=== PATIENT | female | born 1940 | race Caucasian/White ===

== ENCOUNTER → 2016-12-05 | Day surgery (SDC) | payer MEDICARE, BC ==
[~2016-12-05] MED LIST: Sodium Chloride 0.9% 1,000 ML IV SCH
[2016-12-05 07:38] VITALS: BP 163/84
== END ==
LOC: JP.SDS 07:05
PROVIDERS: ATTEND Surgery
DX: Z53.8 Procedure and treatment not carried out for other reasons (principal); I10 Essential (primary) hypertension; E03.9 Hypothyroidism, unspecified; E78.5 Hyperlipidemia, unspecified
CPT/HCPCS: 88305; J7040

== ENCOUNTER 2021-06-06 13:14 | Emergency (ER) | payer MEDICARE, BC ==
[2021-06-06] MEDS ORDERED: Acetaminophen/HYDROcodone 325-5 MG Tab PO ONE (13:41)
--- NOTE | 2021-06-06 13:45 | EDM.PDOC ---
ED HPI GENERAL MEDICAL PROBLEM - General Chief Complaint: Lower Extremity Injury/Pain Stated Complaint: MEDICAL [facility]IA [facility] Time Seen by Provider: 06/06/21 13:38 Source of Information: Reports: Patient, RN Notes Reviewed History Limitations: Reports: No Limitations - History of Present Illness INITIAL COMMENTS - FREE TEXT/NARRATIVE: 80-year-old female presents emergency department day complaint of lower extremity bilateral hip pain, she is unsure what happened she does do peritoneal dialysis at home was very weak fell last night could not get up spent the night on the floor before she could call for help. She continues to complain of pain both hips and bilateral thigh pain as well. Bilateral Leg Pain Score (Numeric/FACES): 8 - Related Data Allergies Allergy/AdvReac Type Severity Reaction Status Date / Time amlodipine [From Norvas] Allergy Edema Verified 06/06/21 13:23 nickel [Nickel] Allergy Cannot Verified 06/06/21 13:23 Remember Sulfa (Sulfonamide Allergy Rash Verified 06/06/21 13:23 Antibiotics) lisinopril AdvReac Cough Verified 06/06/21 13:23 simvastatin AdvReac Muscle Verified 06/06/21 13:23 Aches Home Meds: Home Meds Cholecalciferol (Vitamin D3) [Vitamin D3] 2,000 units PO DAILY 12/29/13 [History] Levothyroxine Sodium [Synthroid] 75 mcg PO ACBREAKFAST 12/12/15 [History] Furosemide [Lasix] 80 mg PO DAILY 09/06/16 [History] Docusate Sodium [Colace] 1 cap PO ASDIRECTED PRN 06/06/21 [History] Past Medical History HEENT History: Reports: Impaired Vision Cardiovascular History: Reports: Hypertension Genitourinary History: Reports: Renal Disease Other Genitourinary History: stage 3 kidney disease SEE SUPERVISOR History: Reports: , Spontaneous Musculoskeletal History: Reports: Arthritis - Infectious Disease History Infectious Disease History: Reports: Chicken Pox - Past Surgical History HEENT Surgical History: Reports: Adenoidectomy, Tonsillectomy Other Oncologic Surgeries/Procedures: precanerous skin cells Social & Family History - Tobacco Use Tobacco Use Status *Q: Never Tobacco User - Recreational Drug Use Recreational Drug Use: No Review of Systems - Review of Systems Review Of Systems: See Below Constitutional: Reports: Weakness Musculoskeletal: Reports: Leg Pain, Other (Pelvic pain) ED EXAM, GENERAL - Physical Exam Exam: See Below Free Text/Narrative:: Examination of the pelvis there is no tenderness to joint rocks however she is tender with both flexion extension internal or external rotation of both hips. Lower extremities are wrapped due to chronic wounds Exam Limited By: No Limitations General Appearance: Alert, WD/WN, No Apparent Distress Respiratory/Chest: No Respiratory Distress, Lungs Clear, Normal Breath Sounds, No Accessory Muscle Use, Chest Non-Tender Cardiovascular: No Murmur, Tachycardia Course - Vital Signs Last Recorded V/S: Last Vital Signs Temp 98.3 F 06/06/21 13:19 Pulse 118 H 06/06/21 16:35 Resp 16 06/06/21 16:35 BP 147/75 H 06/06/21 16:35 Pulse Ox 92 L 06/06/21 16:35 - Orders/Labs/Meds Labs: Laboratory Tests 06/06/21 06/06/21 06/06/21 Range/Units 13:55 13:55 13:55 WBC 16.7 H (4.5-11.0) K/uL RBC 2.99 L (3.30-5.50) M/uL Hgb 9.1 L (12.0-15.0) g/dL Hct 28.6 L (36.0-48.0) % MCV 96 (80-98) fL MCH 30 (27-31) pg MCHC 32 (32-36) % Plt Count 348 (150-400) K/uL Neut % (Auto) 92.7 H (36-66) % Lymph % (Auto) 3.6 L (24-44) % [place] % (Auto) 3.6 (2-6) % Eos % (Auto) 0.0 L (2-4) % Baso % (Auto) 0.1 (0-1) % Sodium 141 (140-148) mmol/L Potassium 4.0 (3.6-5.2) mmol/L Chloride 96 L (100-108) mmol/L Carbon Dioxide 28 (21-32) mmol/L Anion Gap 21.0 H (5.0-14.0) mmol/L BUN 89 H* (7-18) mg/dL Creatinine 7.0 H* (0.6-1.0) mg/dL Est Cr Clr Drug Dosing 5.39 mL/min Estimated GFR (MDRD) 6 L (>60) Glucose 173 H (74-106) mg/dL Lactic Acid 2.8 H (0.4-2.0) mmol/L Calcium 9.6 (8.5-10.1) mg/dL Total Bilirubin 0.4 (0.2-1.0) mg/dL AST 26 (15-37) U/L ALT 35 (12-78) U/L Alkaline Phosphatase 88 (46-116) U/L Creatine Kinase 544 H (26-192) U/L Total Protein 7.0 (6.4-8.2) g/dL Albumin 2.3 L (3.4-5.0) g/dL Globulin 4.7 H (2.3-3.5) g/dL Albumin/Globulin Ratio 0.5 L (1.2-2.2) Meds: Medications Discontinued Medications Generic Name Dose Route Start Last Admin Trade Name Freq PRN Reason Stop Dose Admin Hydrocodone Bitart/Acetaminophen 1 tab 06/06/21 13:41 06/06/21 14:39 Acetaminophen/Hydrocodone 325-5 Mg Tab PO 06/06/21 13:42 1 tab ONETIME ONE Administration Departure - Departure Time of Disposition: 17:10 Disposition: Home, Self-Care 01 Condition: Poor Clinical Impression: Weakness - Discharge Information Instructions: Weakness, [id number] Referrals: PCP,Unknown [Primary Care Provider] - Forms: ED Department Discharge Additional Instructions: Continue with your regular medications and dialysis, please follow-up with your primary care in the next 3 to 5 days for reevaluation, call or return to the emergency department worsening of symptoms Sepsis Event Note (ED) - Evaluation Sepsis Screening Result: No Definite Risk - Focused Exam Vital Signs: Vital Signs Temp Pulse Resp BP Pulse Ox 06/06/21 16:35 118 H 16 147/75 H 92 L 06/06/21 13:19 98.3 F 111 H 20 154/62 H 98 - Assessment/Plan Plan: Assessment Acuity = acute Site and laterality = weakness complicated in the patient with known history of end-stage renal disease currently on peritoneal dialysis as well as peripheral vascular disease with chronic wounds lower extremities Etiology = multifactorial Manifestations = none Location of injury = Home Lab values = WBC elevated 16.7 consistent leukocytosis of uncertain significance , hemoglobin low at 9.1 consistent with normochromic anemia creatinine elevated 7.0 consistent with end-stage renal disease G5 D lactic acid elevated 2.8 consistent lactic acidosis CK elevated at 544 Plan Discussed options with her including hospitalization which she declined as no beds are currently available and she would stay in the emergency department till bed could be found. She elected to go home continue with her dialysis I did write a prescription for wheelchair which she can use to help her mobilization with her weak state follow-up primary care 3 to 5 days for reevaluation This note was dictated using [employer] voice recognition software please call with any questions on syntax or grammar.
--- NOTE | 2021-06-06 15:03 | CRLCR ---
For Patients: As a result of the Century Cures Act, medical imaging exams and procedure reports are released immediately into your electronic medical record. You may view this report before your referring provider. If you have questions, please contact your health care provider. Indication: Fall, pain Technique: Two views of the bilateral hips, AP, frogleg lateral. Single AP view of the pelvis. Comparison: None Findings/Impression: No acute fracture or dislocation. Enthesopathic changes are present at the bilateral greater trochanters. Mild senescent changes of the pubic symphysis. Extensive vascular calcifications. Nonspecific nonobstructive bowel gas pattern. Wiring/tubing is curled within the right hemipelvis. Dictated by Donte Guillaume MD @ 06/06/2021 3:00:50 PM (Electronically Signed)
[2021-06-06 16:36] VITALS: BP 147/75; PULSE 118
== END 2021-06-06 17:41 | disposition home or self-care (01) ==
LOC: JP.ED 13:14
DX: R53.1 Weakness (principal); I12.9 Hypertensive chronic kidney disease with stage 1 through stage 4 chronic kidney disease, or unspecified chronic kidney disease; N18.30 Chronic kidney disease, stage 3 unspecified; Z88.8 Allergy status to other drugs, medicaments and biological substances; Z91.048 Other nonmedicinal substance allergy status; Z88.2 Allergy status to sulfonamides; Z79.899 Other long term (current) drug therapy
CPT/HCPCS: 36415; 73521; 80053; 82550; 83605; 85025; 99285; A9270